=== PATIENT | male | born 1975 | race Caucasian/White ===

== ENCOUNTER 2016-07-27 20:48 | Emergency (ER) | payer MEDICAID ==
[2011-04-21 10:41] VITALS: BMI 23.3
[2016-07-27 22:00] LABS: BASOPHILS 0.6 % (0.0-2.0); EOSINOPHILS 3.3 % (0-7); HEMATOCRIT 40.4 % (42.0-54.0); IMMATURE GRANULOCYTES 0.1 % (0-5); LYMPHOCYTES 23.8 % (15-50); MCHC 32.2 g/dL (31.0-37.0); MCV 90.2 fL (80.0-100.0); MEAN PLATELET VOLUME 10.3 fL (7.4-10.4); MONOCYTES 8.5 % (2-11); NEUTROPHILS 63.7 % (40-80); PLATELET COUNT 176 10x3/uL (130-400); RBC 4.48 10x6/uL (4.20-6.10); RDW 12.9 % (11.5-14.5); WBC 6.7 10x3/uL (4.8-10.8)
[2016-07-27 22:14] LABS: ALBUMIN 3.7 g/dL (3.4-5.0); ANION GAP 10.8 mmol/L (8-16); BILIRUBIN - TOTAL 0.21 mg/dL (0.2-1.3); CALCIUM 8.8 mg/dL (8.5-10.1); CARBON DIOXIDE 31.6 mmol/L (21.0-32.0); CREATININE - SERUM 1.3 mg/dL (0.6-1.3); POTASSIUM - SERUM 4.4 mmol/L (3.5-5.1); PROTEIN - SERUM 6.9 g/dL (6.4-8.2)
[2016-07-27 22:59] LABS: APPEARANCE CLEAR (CLEAR); BILIRUBIN NEGATIVE (NEGATIVE); COLOR YELLOW (YELLOW); GLUCOSE NEGATIVE (NEGATIVE); KETONE NEGATIVE (NEGATIVE); LEUKOCYTE ESTERASE NEGATIVE (NEGATIVE); NITRITE NEGATIVE (NEGATIVE); PROTEIN NEGATIVE (NEGATIVE); UROBILINOGEN NORMAL (NORMAL)
[2016-07-27 23:06] LABS: UDS - AMPHET NEGATIVE QUAL (NEGATIVE); UDS - BARB NEGATIVE QUAL (NEGATIVE); UDS - BENZO POSITIVE QUAL (NEGATIVE); UDS - COCAINE NEGATIVE QUAL (NEGATIVE); UDS - METH NEGATIVE QUAL (NEGATIVE); UDS - OPIATE POSITIVE QUAL (NEGATIVE); UDS - PCP NEGATIVE QUAL (NEGATIVE); UDS - THC POSITIVE QUAL (NEGATIVE)
[2016-07-27 23:07] LABS: AMYLASE - SERUM 23 U/L (25-115); CREATINE KINASE 246 UL (21-232); LIPASE 92 U/L (73-393); TROPONIN-I < 0.017 ng/mL (0.000-0.060)
[2016-07-27 23:08] LABS: CKMB 1.6 U/L (0.0-3.6)
== END 2016-07-28 00:45 | disposition home or self-care (01) ==
LOC: D.ER 20:48
PROVIDERS: Family Medicine
DX: I87.8 Other specified disorders of veins (principal); I10 Essential (primary) hypertension

== ENCOUNTER 2016-09-06 16:06 | Emergency (ER) | payer MEDICAID ==
[2011-04-21 10:41] VITALS: BMI 23.3
== END 2016-09-06 20:07 | disposition left against medical advice (07) ==
LOC: D.ER 16:06
DX: S80.862A Insect bite (nonvenomous), left lower leg, initial encounter (principal); W57.XXXA Bitten or stung by nonvenomous insect and other nonvenomous arthropods, initial encounter; Y93.89 Activity, other specified; Y92.89 Other specified places as the place of occurrence of the external cause

== ENCOUNTER 2017-06-17 18:48 | Emergency (ER) | payer MEDICARE ==
[2011-04-21 10:41] VITALS: BMI 23.3
== END 2017-06-17 21:15 | disposition home or self-care (01) ==
LOC: D.ER 18:48
DX: M54.2 Cervicalgia (principal); I10 Essential (primary) hypertension; W01.0XXA Fall on same level from slipping, tripping and stumbling without subsequent striking against object, initial encounter; Y93.89 Activity, other specified; Y92.89 Other specified places as the place of occurrence of the external cause; F17.200 Nicotine dependence, unspecified, uncomplicated

== ENCOUNTER 2017-12-28 01:50 | Emergency (ER) | payer MEDICARE ==
[~2017-12-28] VITALS: Ht 188 cm; Wt 100.0 kg
[2017-12-28 01:56] VITALS: Ht 188 cm; Wt 100.0 kg
[2017-12-28] MEDS ORDERED: PREDNISONE20 MG PO (02:35)
[2017-12-28] MEDS ORDERED: PEPCID AC20 MG PO (02:35)
[2017-12-28 03:17] VITALS: BP 110/65
== END 2017-12-28 03:10 | disposition home or self-care (01) ==
LOC: D.ER 01:50
DX: S60.561A Insect bite (nonvenomous) of right hand, initial encounter (principal); W57.XXXA Bitten or stung by nonvenomous insect and other nonvenomous arthropods, initial encounter; Y93.89 Activity, other specified; Y92.89 Other specified places as the place of occurrence of the external cause; T78.40XA Allergy, unspecified, initial encounter; X58.XXXA Exposure to other specified factors, initial encounter; F17.200 Nicotine dependence, unspecified, uncomplicated

== ENCOUNTER → 2018-10-18 14:07 | Outpatient (CLI) | payer OTHER ==
[2017-12-28 01:56] VITALS: BMI 28.3
[~2018-10-18 14:07] MED LIST: PEPCID AC20 MG PO; PREDNISONE20 MG PO
== END | disposition home or self-care (01) ==
LOC: D.MRI 14:07
PROVIDERS: ATTEND Anesthesiology Pain Medicine
DX: Z87.898 Personal history of other specified conditions (principal)